=== PATIENT | male | born 2000 | race Caucasian/White ===

== ENCOUNTER 2018-01-28 09:21 | Emergency (ER) | payer BC ==
[~2018-01-28] VITALS: Ht 4311.5 cm; Wt 50.0 kg
[2018-01-28] MEDS ORDERED: diphenhydrAMINE 50 mg/ml inj IM ONE ×2 (09:30→20:05)
[2018-01-28] MEDS ORDERED: LORazepam 2 mg/ml vial IM ONE ×2 (09:30→20:05)
[2018-01-28] MEDS ORDERED: haloperidol lactate 5mg/ml inj IM ONE ×2 (09:30→20:05)
[2018-01-28 09:54] LABS: BASOPHILS % (AUTO) 0.4 % (0-1); EOSINOPHILS # (AUTO) 0.1 X10'3 (0-0.9); EOSINOPHILS % (AUTO) 2.5 % (0-6); HEMATOCRIT 42.4 % (42.0-52.0); HEMOGLOBIN 14.7 g/dl (14.0-17.9); LYMPHOCYTES # (AUTO) 1.6 X10'3 (1.1-4.8); LYMPHOCYTES % (AUTO) 32.7 % (21-51); MEAN CORPUSCULAR HGB CONC 34.6 % (33.0-36.5); MEAN CORPUSCULAR VOLUME 95.2 FL (78-98); MEAN PLATELET VOLUME 8.4 FL (7.4-10.4); MONOCYTES # (AUTO) 0.4 X10'3 (0-0.9); MONOCYTES % (AUTO) 8.5 % (2-12); NEUTROPHILS # (AUTO) 2.7 X10'3 (1.8-7.7); NEUTROPHILS % (AUTO) 55.9 % (42-75); PLATELET COUNT 212 X10'3 (140-440); RED BLOOD COUNT 4.45 X10'6 (4.70-6.10); RED CELL DISTRIBUTION WIDTH 13.7 % (11.5-14.5); WHITE BLOOD COUNT 4.9 X10'3 (4.5-11.0)
[2018-01-28 10:08] LABS: ALANINE AMINOTRANSFERASE 23 U/L (12-78); ALBUMIN 4.6 G/DL (3.4-5.0); ALBUMIN/GLOBULIN RATIO 1.2 (1.1-1.5); ALKALINE PHOSPHATASE 70 IU/L (20-180); ANION GAP 14 (8-16); ASPARTATE AMINO TRANSFERASE 32 U/L (10-37); BILIRUBIN,TOTAL 0.4 MG/DL (0.1-1.0); BLOOD UREA NITROGEN 11 MG/DL (7-18); BUN/CREATININE RATIO 10.9 (5.4-32.0); CALCIUM 9.2 MG/DL (8.5-10.1); CHLORIDE 100 MMOL/L (99-107); CREATININE 1.01 MG/DL (0.60-1.10); GLUCOSE 109 MG/DL (70-104); POTASSIUM 3.6 MMOL/L (3.5-5.1); SODIUM 138 MMOL/L (135-145); TOTAL CARBON DIOXIDE 23.7 MMOL/L (24-32); TOTAL PROTEIN 8.3 G/DL (6.4-8.2); eGFR > 90 ML/MIN
[2018-01-28 10:17] LABS: ETHANOL 0.081 GM/DL (0.0-0.010)
[2018-01-28 10:45] LABS: URINE AMPHETAMINE SCREEN NEGATIVE (Neg); URINE BARBITUATE SCREEN NEGATIVE (Neg); URINE BENZODIAZEPINES SCREEN NEGATIVE (Neg); URINE CANNABINOID SCREEN POSITIVE (Neg); URINE COCAINE SCREEN NEGATIVE (Neg); URINE METHADONE SCREEN NEGATIVE (Neg); URINE OPIATE SCREEN NEGATIVE (Neg); URINE PHENCYCLIDINE SCREEN NEGATIVE (Neg)
[2018-01-28] MEDS ORDERED: nicotine 7mg patch - 24hr TD ONE (20:00)
[2018-01-28] MEDS ORDERED: LORazepam 2 mg/ml vial IM PRN (22:50)
[2018-01-28] MEDS ORDERED: OLANZapine **IM** 10 mg inj. IM PRN (22:50)
[2018-01-29] MEDS: nicotine 7mg patch - 24hr TD SCH (08:51)
[2018-01-29] MEDS: Protein Shake (high protein) 240ml (8oz) cup PO SCH ×3 (08:52→18:20)
[2018-01-29] MEDS: LORazepam 1 MG tablet PO PRN (11:29)
[2018-01-29] MEDS ORDERED: lansoprazole 15mg solutab PO ONE (13:45)
[2018-01-29] MEDS ORDERED: pantoprazole 40mg Tablet.DR PO ONE (14:25)
[2018-01-29] MEDS: OLANZapine 5mg rapidly disint. tablet PO PRN (15:03)
[2018-01-29] MEDS ORDERED: OLANZapine 2.5MG tablet PO SCH (21:00)
[2018-01-30 05:40] VITALS: BP_DIAS 60
[2018-01-30] MEDS ORDERED: pantoprazole 40mg Tablet.DR PO SCH (07:30)
[2018-01-30] MEDS: nicotine 7mg patch - 24hr TD SCH (07:34)
[2018-01-30] MEDS: OLANZapine 5mg rapidly disint. tablet PO PRN (07:34)
[2018-01-30] MEDS: Protein Shake (high protein) 240ml (8oz) cup PO SCH ×2 (08:43→13:00)
[2018-01-30] MEDS: LORazepam 1 MG tablet PO PRN ×2 (08:50→15:20)
[2018-01-30 18:11] VITALS: BP_SYST 60
== END 2018-01-30 18:13 ==
LOC: ER 09:21
DX: R45.851 Suicidal ideations (principal); F17.200 Nicotine dependence, unspecified, uncomplicated; F12.90 Cannabis use, unspecified, uncomplicated; F41.9 Anxiety disorder, unspecified; F43.10 Post-traumatic stress disorder, unspecified
CPT/HCPCS: 36415; 80053; 80305; 80320; 84443; 85025; 96372; 99285; J1200; J1630; J2060